=== PATIENT | female | born 1955 | race Caucasian/White ===

== ENCOUNTER 2018-11-17 11:07 | Day surgery (SDC) | payer BC ==
[~2018-11-17 11:07] MED LIST: BUPIVACAINE 0.5% (SDV) 30 ML INJ; MIDAZOLAM 1 MG/ML 2 ML INJ
[2018-11-17 11:55] LABS: ADD MAN DIFF? NO
[2018-11-17 11:59] LABS: WHITE BLOOD COUNT 6.4 10^3/ul (4.8-10.8)
[2018-11-17 11:59] LABS: BASOPHIL # 0.1 10^3/ul (0.0-0.1); BASOPHILS % 0.9 % (0.0-2.0); EOSINOPHILS # 0.1 10^3/ul (0.0-0.5); EOSINOPHILS % 1.6 % (0.0-7.0); HEMATOCRIT 46.5 % (37.0-47.0); HEMOGLOBIN 15.2 g/dl (12.0-16.0); LYMPHOCYTES # 2.8 10^3/ul (0.8-2.9); MEAN CORPUSCULAR HEMOGLOBIN 31.1 pg (29.0-33.0); MEAN CORPUSCULAR HGB CONC 32.7 g/dl (32.0-37.0); MEAN CORPUSCULAR VOLUME 95.3 fl (82.0-101.0); MEAN PLATELET VOLUME 9.6 fl (7.4-10.4); MONOCYTE # 0.6 10^3/ul (0.3-0.9); MONOCYTES % 9.6 % (0.0-11.0); NEUTROPHIL # 2.8 10^3/ul (1.6-7.5); NEUTROPHILS % 43.7 % (39.0-77.0); PLATELET COUNT 261 10^3/UL (140-415); RED BLOOD COUNT 4.88 10^6/ul (4.20-5.40); RED CELL DISTRIBUTION WIDTH 11.4 % (11.5-14.5)
[2018-11-17] MEDS ORDERED: PROPOFOL 100 ML (12:24)
[2018-11-17] MEDS ORDERED: FENTAnyl 50 MCG/ML VIAL ×2 (12:27→13:25)
[2018-11-17] MEDS ORDERED: CLINDAMYCIN 900 MG (PMX) 50 ML IVPB (12:36)
[2018-11-17] MEDS ORDERED: LIDOCAINE 2% (SDV) 5 ML INJ (12:37)
[2018-11-17] MEDS ORDERED: ROCURONIUM 50 MG INJ (12:37)
[2018-11-17] MEDS ORDERED: DEXAMETHASONE 4 MG/ML 5 ML INJ (12:51)
[2018-11-17] MEDS ORDERED: ONDANSETRON 4 MG INJ (12:52)
[2018-11-17] MEDS ORDERED: LABETALOL HCL 20MG INJ (13:54)
[2018-11-17] MEDS ORDERED: ROPIVACAINE 0.5 % 30 ML VIAL (14:42)
[2018-11-17] MEDS ORDERED: SUGAMMADEX SODIUM 200 MG/2 ML VIAL IV (14:53)
[2018-11-17] MEDS ORDERED: CLINDAMYCIN 600 MG/D5W (PMX) 50 ML IVPB (15:02)
[2018-11-17] MEDS: morphine 2 MG INJ IV (15:22)
[2018-11-17] MEDS: OXYCODONE/ACETAMINOPHEN (5/325) TAB PO (15:23)
[2018-11-17] MEDS ORDERED: DIPHENHYDRAMINE 50 MG INJ IV (15:30)
[2018-11-17] MEDS ORDERED: ONDANSETRON 4 MG INJ IV (15:30)
[2018-11-17] MEDS ORDERED: EPHEDrine 25 MG/5 ML SYG IV (15:30)
[2018-11-17] MEDS ORDERED: hydrALAzine 20 MG INJ IV (15:30)
[2018-11-17] MEDS ORDERED: FENTAnyl 50 MCG/ML VIAL IV ×3 (15:30)
[2018-11-17] MEDS ORDERED: METOCLOPRAMIDE 10 MG INJ IV (15:30)
[2018-11-17] MEDS ORDERED: MEPERIDINE 25 MG INJ IV (15:30)
[2018-11-17] MEDS ORDERED: LABETALOL HCL 20MG INJ IV (15:30)
[2018-11-17] MEDS ORDERED: HYDROmorphONE 1 MG/5 ML IV SYRINGE IV ×3 (15:30)
[2018-11-17] MEDS ORDERED: ALBUTEROL 0.083% (NEB) 2.5 MG/3 ML AMP HHN (15:30)
[2018-11-17] MEDS ORDERED: KETOROLAC 30 MG INJ IV (15:30)
[2018-11-17] MEDS ORDERED: OXYCODONE/ACETAMINOPHEN (5/325) TAB PO ×3 (15:30)
[2018-11-17] MEDS ORDERED: DIPHENHYDRAMINE 50 MG INJ (15:40)
[2018-11-17] MEDS: ONDANSETRON 4 MG INJ IV (15:43)
[2018-11-17] MEDS: SOD CHLORIDE 0.9% 1,000 ML IV (15:46)
[2018-11-17] MEDS: DIPHENHYDRAMINE 50 MG INJ IV (15:58)
== END 2018-11-17 17:50 | disposition home or self-care (01) ==
LOC: SDS 11:07
DX: M93.271 Osteochondritis dissecans, right ankle and joints of right foot (principal); M65.871 Other synovitis and tenosynovitis, right ankle and foot; M25.771 Osteophyte, right ankle; M24.071 Loose body in right ankle; E78.5 Hyperlipidemia, unspecified
CPT/HCPCS: 29892; 73600; 85025